=== PATIENT | female | born 1960 | race Caucasian/White ===

== ENCOUNTER 2022-09-07 03:35 | Emergency (ER) | payer OTHER ==
--- NOTE | 2022-09-07 03:46 | ED Physician Documentation ---
PD HPI HEAD INJURY - Stated complaint Stated Complaint: FELL, R EYE INJ - History obtained from History obtained from: Patient - History of Present Illness Mechanism of head injury: Fell Where head injury occurred: Home Timing - onset: How many minutes ago (approximately 30-45 minutes [employer]) Pain level now: 0 Associated symptoms: No: LOC, AMS, Neck pain Contributing factors: No: Anticoagulated, Intoxicated Recently seen: Not recently seen - Additional information Additional information: got out of bed, tripped and fell, struck face against space heater which caused a laceration to right side of nasal bridge Review of Systems Eyes: denies: Loss of vision, Decreased vision Skin: reports: Laceration (s) PD PAST MEDICAL HISTORY - Past Medical History Past Medical History: No - Allergies Allergies/Adverse Reactions: Allergies Allergy/AdvReac Type Severity Reaction Status Date / Time codeine Allergy Hives Verified 09/07/22 03:45 erythromycin base Allergy Hives Verified 09/07/22 03:45 PD ED PE NORMAL - Vitals Vital signs reviewed: Yes - General General: Alert and oriented X 3, No acute distress - HEENT HEENT: PERRL, EOMI - Neck Neck: No bony TTP PD ED PE EXPANDED - HEENT HEENT Visual: 1 - laceration (1 cm length laceration right lateral aspect of nasal bridge, gaps when mild traction applied. no involvement of upper/lower eyelid) Results - Vitals Vitals: Oxygen O2 Source Room air Procedures - Laceration (location) Nose Length in cm: 1 Wound type: Linear, Into subcut fat, Clean Anesthesia: Lidocaine 1% Wound preparation: Chlorhexadine, Wound explored Skin layer closure: Nylon, Interrupted, Size #-0 - enter number (6-0) Other: Patient tolerated well, No complications, Tetanus UTD PD MEDICAL DECISION MAKING - ED course Complexity details: considered differential, d/w patient Departure - Departure Disposition: 01 Home, Self Care Clinical Impression: Laceration Condition: Good Instructions: ED Laceration Facial Sutr Tape Comments: Follow up with your primary care provider in 7-8 days for removal of the stitches. If you cannot arrange for the follow up within this time frame, you can instead go to a walk-in clinic, urgent care center, or the ER. Discharge Date/Time: 09/07/22 04:51
[2022-09-07] MEDS ORDERED: LIDOCAINE 1% 2 ML VIAL SUBQ STA (03:58)
[2022-09-07] MEDS ORDERED: BACITRACIN ZINC OINT 1 PACKET TOP STA (04:43)
[2022-09-07 04:52] VITALS: BP 115/80
== END 2022-09-07 04:51 | disposition home or self-care (01) ==
LOC: ED 03:35
DX: S01.21XA Laceration without foreign body of nose, initial encounter (principal); W06.XXXA Fall from bed, initial encounter
CPT/HCPCS: 12011; 99281